=== PATIENT | female | born 1950 | race Caucasian/White ===

== ENCOUNTER 2019-01-28 12:44 | Outpatient (CLI) | payer OTHER ==
[2019-01-28 13:01] LABS: BASOPHILS % 1.6 % (0.0-1.5); EOSINOPHILS % 2.2 % (0.0-6.8); MEAN CORPUSCULAR HEMOGLOBIN 31.7 pg (28.0-34.0); NEUTROPHILS # 4.5 # k/uL (1.4-7.7)
[2019-01-28 13:30] LABS: eGFR (Non-African) > 60
--- NOTE | 2019-01-28 13:36 | Diagnostic Imaging Report ---
ELIF GORDON [facility] [id number] [facility].[address] [id number] Report Submission Date: Jan 28, 2019 1:19:27 PM CDT Patient Study Name: JOHN PAUL BUI Date: Jan 28, 2019 12:58:06 PM CDT Modality Type: DX Gender: F Description: SHOULDER 2 VIEWS OR MORE : 54 Institution: [facility] Physician: ELIF GORDON EXAMINATION: SHOULDER 2 VIEWS OR MORE HISTORY: CHRONIC ANTERIOR RT SHOULDER PAIN WITH LIMITED RANGE OF MOTION. (Hx) COMPARISON: None FINDINGS: The osseous structures are intact without acute fracture. The glenohumeral and acromioclavicular joints are in anatomic alignment. There is a minimal glenohumeral arthritis. IMPRESSION: Minimal glenohumeral arthritis without acute fracture or dislocation identified. Electronically signed on Jan 28, 2019 1:19:27 PM CDT by: Tyrell RODRIGUEZ
== END 2019-01-28 13:00 ==
LOC: LAB 12:44
PROVIDERS: ATTEND Family Medicine
DX: D64.9 Anemia, unspecified (principal); E11.9 Type 2 diabetes mellitus without complications; M25.511 Pain in right shoulder; Z51.81 Encounter for therapeutic drug level monitoring; M19.011 Primary osteoarthritis, right shoulder
CPT/HCPCS: 36415; 73030; 80053; 80061; 83036; 85025